=== PATIENT | male | born 1975 | race Caucasian/White ===

== ENCOUNTER 2020-02-25 08:10 | Emergency (ER) | payer BC, OTHER ==
--- NOTE | 2020-02-25 08:27 | EDM.PDOC ---
ED HPI GENERAL MEDICAL PROBLEM - General Chief Complaint: Upper Extremity Injury/Pain Stated Complaint: crush injury of left index finger Time Seen by Provider: 02/25/20 08:20 Source of Information: Reports: Patient, Old Records ([facility] chart/EMR) History Limitations: Reports: No Limitations - History of Present Illness INITIAL COMMENTS - FREE TEXT/NARRATIVE: The patient was brought to the emergency room via transport vehicle from [facility] for evaluation of a Workmen's Compensation injury, which occurred at about 7:20 AM this morning. Patient caught his second left finger between a hydraulic metal clamp and a part with laceration cleaned with soap and water by the [facility] nurse, however no other medications prior to arrival. He has not injured this finger in the past and is right-handed. He denies any paresthesias, neurological deficits, or other complaints or injuries. The patient was wearing a glove with no history of foreign body, etc. No recent history of abdominal pain, heartburn, nausea, diarrhea, melena, gross hematochezia, or any food intolerance, including fatty foods, etc.. The patient also denies any recent fever, cough, wheezing, dyspnea, etc.. The patient initially complained of 9/10 throbbing pain with improvement to 4/10 prior to arrival. Onset: Today, Sudden Onset Date: 02/25/20 Onset Time: 07:15 Duration: Constant, Improving Location: Reports: Upper Extremity, Left. Denies: Head, Face, Neck, Chest, Abdomen, Back, Pelvis, Upper Extremity, Right, Lower Extremity, Left, Lower Extremity, Right, Radiates to Quality: Reports: Same as Previous Episode, Throbbing Severity: Moderate Improves with: Reports: None Worsens with: Reports: None Context: Reports: Trauma (As above) Associated Symptoms: Denies: Confusion, Chest Pain, Cough, Diaphoresis, Fever/Chills, Headaches, Loss of Appetite, Malaise, Nausea/Vomiting, Shortness of Breath, Syncope, Weakness Treatments APPOINTMENT COORDINATOR: Reports: Dressing(s) (As above) Left Finger-Index Pain Score (Numeric/FACES): 4 - Related Data Allergies Allergy/AdvReac Type Severity Reaction Status Date / Time Penicillins Allergy Severe Hives Verified 02/25/20 08:11 Home Meds: Home Meds Cetirizine HCl [Zyrtec] 10 mg PO DAILY PRN 01/26/18 [History] metFORMIN HCl [Metformin ER Osmotic] 500 mg PO DAILY 01/26/18 [History] Past Medical History HEENT History: Reports: Allergic Rhinitis, Impaired Vision, Other (See Below). Denies: Cataract, Glaucoma, Hard of Hearing, Macular Degeneration, Otitis Media, Retinal Detachment Other HEENT History: The patient wears glasses. Cardiovascular History: Reports: Heart Murmur, Other (See Below). Denies: High Cholesterol, Hypertension Other Cardiovascular History: No known hyperlipidemia despite distant history of fatty liver as below. Respiratory History: Reports: None, Intubation, Previous. Denies: Asthma, Intubation, Difficult Gastrointestinal History: Reports: Fatty Liver, Other (See Below) Other Gastrointestinal History: Fatty liver with mild LFTs elevation in 2006 by ultrasound as below. Genitourinary History: Reports: None. Denies: Chronic Renal Insuffiency, Diabetic Nephropathy Musculoskeletal History: Reports: Osteoarthritis, Other (See Below). Denies: Fracture Other Musculoskeletal History: Note corrected bilateral jaw surgery as below. Neurological History: Reports: None. Denies: Neuropathy, Diabetic, Neuropathy, Peripheral Endocrine/Metabolic History: Reports: Diabetes, Type II. Denies: Hypothyroid ism, IDDM - Past Surgical History Other Head Surgeries/Procedures: Bilateral corrective maxillary and mandibular repositioning/repair at age 16. Male Surgical History: Reports: Circumcision, Other (See Below) Other Male Surgeries/Procedures: Circumcision as an infant. - Past Imaging History Past Imaging History: Reports: Ultrasound (Abdominal ultrasound on 07/03/2006.) Social & Family History - Tobacco Use Smoking Status *Q: Never Smoker Tobacco Use Within Last Twelve Months: No Used Tobacco, but Quit: No Smoking Cessation Information Provided To Patient: No Second Hand Smoke Exposure: No Second Hand Smoke Education Provided: No - Caffeine Use Caffeine Use: Reports: Soda - Living Situation & Occupation Living situation: Reports: (1994, 3 children), with Family Occupation: Employed ([employer]) Review of Systems - Review of Systems Review Of Systems: Comprehensive ROS is negative, except as noted in HPI. ED EXAM, GENERAL - Physical Exam Exam: See Below Exam Limited By: No Limitations General Appearance: Alert, WD/WN, No Apparent Distress Head: Atraumatic, Normocephalic. No: Facial Swelling, Facial Tenderness, Sinus Tenderness Neck: Normal Inspection, Supple, Non-Tender, Full Range of Motion. No: Lymphadenopathy (L), Lymphadenopathy (R), Thyromegaly Respiratory/Chest: No Respiratory Distress, Lungs Clear, Normal Breath Sounds, No Accessory Muscle Use, Chest Non-Tender. No: Pleural Rub, Retractions Cardiovascular: Normal Peripheral Pulses, Regular Rate, Rhythm, No Edema, No Gallop, No JVD, No Murmur, No Rub. No: Gallop/S3, Gallop/S4, Friction Rub Peripheral Pulses: 2+: Radial (L), Radial (R) GI/Abdominal: Normal Bowel Sounds, Soft, Non-Tender, No Organomegaly, No Distention, No Abnormal Bruit, No Mass, Pelvis Stable. No: Guarding (Male) Exam: Deferred Rectal (Males) Exam: Deferred Back Exam: Normal Inspection, Full Range of Motion. No: CVA Tenderness (L), CVA Tenderness (R), Muscle Spasm Extremities: Normal Range of Motion, No Pedal Edema, Normal Capillary Refill, Limited Range of Motion (As above). No: Non-Tender (Mild palpation pain over laceration site of digit #2 of the left hand. 1 cm in length superficial skin tear and laceration with mild subcutaneous hematoma with no significant swelling, crepitation, deformity, foreign body, sign of fracture, etc. Mild decreased range of motion secondary to laceration.), Joint Swelling, Ngozi's Sign Neurological: Alert, Oriented, CN II-XII Intact, Normal Cognition, Normal Gait, No Motor/Sensory Deficits Psychiatric: Normal Affect, Normal Mood Skin Exam: Wound/Incision (As above). No: Diaphoretic Lymphatic: No Adenopathy ED TRAUMA EXTREMITY PROCEDURES - Splinting Left 2nd Digit Splint Site: Digit #2 of the left hand Pre-Procedure NV Status: Normal Post-Procedure NV Status: Normal Splint Material: Aluminum-Foam (3-hole padded finger splint) Splint Design: Extensor (And flexor) Applied & Form Fitted By: Nurse Provider Post-Splint Application NV Check: NV Status Normal, Good Position Complications: No Course - Vital Signs Last Recorded V/S: Last Vital Signs Temp 36.9 C 02/25/20 08:15 Pulse 93 02/25/20 08:15 Resp 18 02/25/20 08:15 BP 132/88 02/25/20 08:15 Pulse Ox 100 08/20/20 08:15 Vital Signs - 24 hr 02/25/20 08:15 Temperature [ 36.9 C Temporal] Pulse, 93 Peripheral [ Pulse Oximetry] Respiratory 18 Rate Blood Pressure 132/88 [Right Upper Arm] O2 Sat by Pulse 100 Oximetry - Orders/Labs/Meds Orders: Active Orders 24 hr Category Date Time Status Vaccines to be Administered [RC] PER UNIT ROUTINE Care 02/25/20 09:12 Active Fingers Second Digit Lt F1 [CR] Stat Exams 02/25/20 08:28 Taken Durable Medical Equipment for Discharge [DME for Oth 02/25/20 09:12 Ordered Discharge] [COMM] Routine Obtain Past Medical Record [OM.PC] Routine Oth 02/25/20 08:27 Active Labs: None Meds: Medications Discontinued Medications Generic Name Dose Route Start Last Admin Trade Name Freq PRN Reason Stop Dose Admin Diphtheria/Tetanus/Acell Pertussis 0.5 ml 02/25/20 09:12 02/25/20 09:27 Adacel IM 02/25/20 09:13 0.5 ml .ONCE ONE Administration Neomycin/Polymyxin/Bacitracin 1 each 02/25/20 09:28 02/25/20 09:35 Triple Antibiotic Oint TOP 02/25/20 09:29 1 each ONETIME ONE Administration - Radiology Interpretation Free Text/Narrative:: X-rays of digit #2 of the left hand, complete, shows evidence of soft tissue injury but no fracture, dislocation, foreign body, etc. Mild osteoarthritic changes. Departure - Departure Time of Disposition: 09:43 Disposition: Home, Self-Care 01 Condition: Good Clinical Impression: Laceration Diabetes mellitus Qualifiers: Diabetes mellitus type: type 2 Diabetes mellitus intermediate accountant insulin use: without jail use Diabetes mellitus complication status: without complication Qualified Code(s): E11.9 - Type 2 diabetes mellitus without complications Osteoarthritis Qualifiers: Osteoarthritis location: multiple joints Osteoarthritis type: primary Qualified Code(s): M89.49 - Other hypertrophic osteoarthropathy, multiple sites Allergic rhinitis Qualifiers: Allergic rhinitis trigger: other Allergic rhinitis seasonality: non-seasonal Qualified Code(s): J30.89 - Other allergic rhinitis - Discharge Information *PRESCRIPTION DRUG MONITORING PROGRAM REVIEWED*: Not Applicable *COPY OF PRESCRIPTION DRUG MONITORING REPORT IN PATIENT JOSE JUAN: Not Applicable Instructions: Laceration Care, Adult, [id number] Referrals: Elysia De Anda PA-C [Primary Care Provider] - Forms: ED Department Discharge Additional Instructions: 1. Follow up with your regular provider in 10-14 days as needed, if symptoms persist. Bring these discharge instructions with you to that visit.. 2. Tylenol 650 mg by mouth every 4 hours and/or OTC ibuprofen 2-3 tabs by mouth every 6 hours with food as directed./needed. You may stagger these medications for 48-72 hours only, which essentially means that you are receiving a pain medication about every 2 hours. 3. Antibacterial soap wash/soak with subsequent antibacterial dressing such as Neosporin, etc. as directed 2 times per day until the wound or laceration site completely heals. Keep the area clean and dry with activity restrictions as discussed. Never use hydrogen peroxide for wound care. 4. Work excuse- See Form 5. Immediately after this visit verify that your cellular telephone's voicemail has been activated and is empty. Also verify that your home telephone's answering machine is operating properly and has space to receive messages. Note that it is sometimes necessary for us to be able to contact you at a later date to discuss your medical care. 6. Please remember that we are ALWAYS here for you and want to answer any questions you may have. Feel free to call the hospital any time and we call you back KAIDEN. Sepsis Event Note (ED) - Focused Exam Vital Signs: Vital Signs Temp Pulse Resp BP Pulse Ox 02/25/20 08:15 36.9 C 93 18 132/88 100 - Problem List & Annotations (1) Laceration SNOMED Code(s): 104059023 Code(s): NDZ3774 - Status: Acute Priority: High Current Visit: Yes Onset Date: 02/25/20 Annotation/Comment:: Laceration does not require repair. Neosporin dressing placed with nurse applying a 3-hole finger splint to ensure laceration stability. [employer] work and Workmen's Compensation forms were completed. Wound care, activity restrictions, etc. were discussed. Last TDAP on 07/27/2010 with TDAP given in the emergency room secondary his diabetes, etc. (2) Diabetes mellitus SNOMED Code(s): 24370085 Code(s): E11.9 - TYPE 2 DIABETES MELLITUS WITHOUT COMPLICATIONS Status: Chronic Priority: Medium Current Visit: Yes Annotation/Comment:: Stable by patient history, although the patient does not normally take Accu-Cheks. Qualifiers: Diabetes mellitus type: type 2 Diabetes mellitus jail insulin use: without intermediate accountant use Diabetes mellitus complication status: without complication Qualified Code(s): E11.9 - Type 2 diabetes mellitus without complications (3) Osteoarthritis SNOMED Code(s): 776374207 Code(s): M19.90 - UNSPECIFIED OSTEOARTHRITIS, UNSPECIFIED SITE Status: Chronic Priority: Medium Current Visit: Yes Annotation/Comment:: Stable by history with no evidence of other injury. Qualifiers: Osteoarthritis location: multiple joints Osteoarthritis type: primary Qualified Code(s): M89.49 - Other hypertrophic osteoarthropathy, multiple sites (4) Allergic rhinitis SNOMED Code(s): 24097716 Code(s): J30.9 - ALLERGIC RHINITIS, UNSPECIFIED Status: Chronic Priority: Medium Current Visit: Yes Annotation/Comment:: Stable by history Qualifiers: Allergic rhinitis trigger: other Allergic rhinitis seasonality: non- seasonal Qualified Code(s): J30.89 - Other allergic rhinitis - Problem List Review Problem List Initiated/Reviewed/Updated: Yes - My Orders Last 24 Hours: My Active Orders 02/25/20 08:27 Obtain Past Medical Record [OM.PC] Routine 02/25/20 08:28 Fingers Second Digit Lt F1 [CR] Stat 02/25/20 09:12 Vaccines to be Administered [RC] PER UNIT ROUTINE Durable Medical Equipment for Discharge [DME for Discharge] [COMM] Routine - Assessment/Plan Last 24 Hours: My Active Orders 02/25/20 08:27 Obtain Past Medical Record [OM.PC] Routine 02/25/20 08:28 Fingers Second Digit Lt F1 [CR] Stat 02/25/20 09:12 Vaccines to be Administered [RC] PER UNIT ROUTINE Durable Medical Equipment for Discharge [DME for Discharge] [COMM] Routine Assessment:: As above Plan: As above. Extensive precautions were given to the patient, who is in agreement with the treatment plan. See Patient Instructions for further treatment and plan.
[2020-02-25] MEDS ORDERED: Diphtheria,Pertussis(Acell),Tetanus Vaccine 0.5 ML SDV IM ONE (09:12)
[2020-02-25] MEDS ORDERED: Bacitracin/Neomycin/Polymyxin B Oint 0.9 GM U/D Packet TOP ONE (09:28)
== END 2020-02-25 09:37 | disposition home or self-care (01) ==
LOC: LL.ED 08:10
DX: S61.211A Laceration without foreign body of left index finger without damage to nail, initial encounter (principal); J30.89 Other allergic rhinitis; M89.49 Other hypertrophic osteoarthropathy, multiple sites; E11.9 Type 2 diabetes mellitus without complications; Z23 Encounter for immunization; Z88.0 Allergy status to penicillin; W23.0XXA Caught, crushed, jammed, or pinched between moving objects, initial encounter; Y99.0 Civilian activity done for income or pay
CPT/HCPCS: 73140-F1; 90471; 90715; 99283-25

== ENCOUNTER 2022-12-31 21:33 | Emergency (ER) | payer BC ==
[2022-12-31] MEDS ORDERED: Ketorolac 15 MG/ML SDV IM ONE (21:59)
== END 2022-12-31 22:30 | disposition home or self-care (01) ==
LOC: LL.ED 21:33
DX: T20.10XA Burn of first degree of head, face, and neck, unspecified site, initial encounter (principal); T22.10XA Burn of first degree of shoulder and upper limb, except wrist and hand, unspecified site, initial encounter; E11.9 Type 2 diabetes mellitus without complications; M19.90 Unspecified osteoarthritis, unspecified site; Z88.0 Allergy status to penicillin; X19.XXXA Contact with other heat and hot substances, initial encounter
CPT/HCPCS: 96372; 99283; 99284; J1885